=== PATIENT | female | born 1965 ===

== ENCOUNTER → 2022-02-28 | Outpatient (CLI) | payer BC | LOC: MC.RAD 08:58 → EDBD 09:00 → MC.RAD 09:00 | DX: Z12.31 Encounter for screening mammogram for malignant neoplasm of breast (principal) ==

== ENCOUNTER → 2024-02-20 | Outpatient (CLI) | payer BC | LOC: MC.RAD 08:15 | DX: Z12.31 Encounter for screening mammogram for malignant neoplasm of breast (principal) ==